=== PATIENT | male | born 1945 | race Caucasian/White ===

== ENCOUNTER 2021-12-01 15:13 | Emergency (ER) | payer MEDICARE ==
[2021-12-01 15:56] LABS: #Basophils 0.1 thou/uL (0.0-0.2); #Eosinphils 0.1 thou/uL (0.0-0.7); #Lymphocytes 1.3 thou/uL (1.20-3.40); #Neutrophils 11.7 thou/uL (1.40-6.50); %Basophils 0.8 % (0.0-1.0); %Eosinophils 0.6 % (0.0-10.0); %Neutrophils 82.6 % (42.0-75.0); Hemoglobin 14.4 g/dL (14.0-18.0); Mean Corpuscular HGB CONC 33.1 g/dL (32.0-36.0); Mean Corpuscular Hemoglobin 30.8 pg (27.0-31.0); Mean Platelet Volume 7.2 fL (7.4-10.4); Platelet Count 179 thou/uL (130-400); RBC Distribution Width 12.4 % (11.5-14.5); Red Blood Cell (RBC) Count 4.67 mill/uL (4.70-6.10); White Blood Cell (WBC) Count 14.1 thou/uL (4.8-10.8)
[2021-12-01 16:08] LABS: ALT (SGPT) 20 U/L (8-55); AST (SGOT) 18 U/L (5-34); Albumin 4.5 g/dL (3.4-4.8); Alkaline Phosphatase 50 U/L (40-110); Anion Gap 16 mmol/L (10-20); BUN (Urea Nitrogen) 24 mg/dL (8.4-25.7); Bilirubin, Total 0.5 mg/dL (0.2-1.2); Calc. Creatinine Clearance 0 mL/min (70-130); Calcium 9.5 mg/dL (7.8-10.44); Carbon Dioxide 22 mmol/L (23-31); Chloride 106 mmol/L (98-107); Glucose 252 mg/dL (83-110); Potassium 4.8 mmol/L (3.5-5.1); Protein, Total 7.5 g/dL (5.8-8.1); Sodium 139 mmol/L (136-145)
== END 2021-12-01 19:30 | disposition home or self-care (01) ==
LOC: ERS 15:13
DX: E11.22 Type 2 diabetes mellitus with diabetic chronic kidney disease (principal); N18.9 Chronic kidney disease, unspecified; Z87.891 Personal history of nicotine dependence; Z79.82 Long term (current) use of aspirin; Z79.899 Other long term (current) drug therapy
CPT/HCPCS: 36415; 70450; 71045; 80053; 83880; 84484; 85025; 93005

== ENCOUNTER 2023-03-01 08:19 | Outpatient (CLI) | payer MEDICARE | END 2023-03-01 08:20 | disposition home or self-care (01) | LOC: BICMRI 08:19 | PROVIDERS: ATTEND Specialist | DX: M79.645 Pain in left finger(s) (principal) ==

== ENCOUNTER 2024-02-24 09:07 | Outpatient (CLI) | payer MEDICARE ==
[2024-02-24 10:37] LABS: #Basophils 0.03 10x3/uL (0.0-0.2); %Basophils 0.5 % (0.0-1.0); %Eosinophils 3.8 % (0.0-10.0); %Lymphocytes 25.1 % (21.0-51.0); %Monocytes 12.4 % (0.0-10.0); %Neutrophils 57.9 % (42.0-75.0); Hematocrit 40.2 % (42.0-52.0); Hemoglobin 13.5 g/dL (14.0-18.0); Mean Corpuscular HGB CONC 33.6 g/dL (32.0-36.0); Mean Corpuscular Hemoglobin 30.3 pg (27.0-31.0); Mean Corpuscular Volume 90.1 fL (78.0-98.0); Mean Platelet Volume 9.3 fL (7.4-10.4); Platelet Count 155 10x3/uL (130-400); RBC Distribution Width 13.2 % (11.5-14.5); Red Blood Cell (RBC) Count 4.46 mill/uL (4.70-6.10)
[2024-02-24 10:47] LABS: Anion Gap 13 mmol/L (10-20); BUN (Urea Nitrogen) 28 mg/dL (8.4-25.7); Calc. Creatinine Clearance 0 mL/min (70-130); Calcium 9.4 mg/dL (7.8-10.44); Carbon Dioxide 21 mmol/L (23-31); Chloride 108 mmol/L (98-107); Estimated GFR 71; Glucose 101 mg/dL (83-110); Potassium 4.4 mmol/L (3.5-5.1); Sodium 138 mmol/L (136-145)
== END 2024-02-24 09:08 | disposition home or self-care (01) ==
LOC: LABBT 09:07
PROVIDERS: ATTEND Orthopaedic Surgery Hand Surgery
DX: Z01.818 Encounter for other preprocedural examination (principal); M72.0 Palmar fascial fibromatosis [Dupuytren]; M65.322 Trigger finger, left index finger
CPT/HCPCS: 80048; 85025; 93005; 93010

== ENCOUNTER 2024-02-28 06:10 | Day surgery (SDC) | payer MEDICARE ==
[2024-02-24 09:39] VITALS: BMI 27.1
[2024-02-28] MEDS ORDERED: Bacitracin Zinc Ointment 30 gm TUBE ONE (06:40)
[2024-02-28] MEDS ORDERED: Bupivacaine PF 0.5% 30 ML VIAL ONE (06:40)
[2024-02-28] MEDS ORDERED: Vancomycin (BATCH) 1.5 GM/300 ML BAG ONE (06:42)
[2024-02-28] MEDS ORDERED: fentaNYL PF 100 MCG/2 ML SYRINGE ONE (06:52)
[2024-02-28] MEDS ORDERED: Dexamethasone 4 mg/ml Vial ONE (06:52)
[2024-02-28] MEDS ORDERED: Ondansetron PF 4 MG/2 ML Vial ONE (06:52)
[2024-02-28] MEDS ORDERED: Lidocaine 1% PF 5 ML VIAL ONE (06:52)
[2024-02-28] MEDS ORDERED: PROPOFOL 40 ML ONE (06:53)
[2024-02-28] MEDS ORDERED: Vasopressin 20 UNITS/ML VIAL ONE (07:04)
[2024-02-28] MEDS ORDERED: Phenylephrine 40 MG/NS 250 ML 250 ML ONE (07:23)
[2024-02-28] MEDS ORDERED: ePHEDrine Sulfate 50 MG/10 ML VIAL ONE (07:24)
[2024-02-28] MEDS ORDERED: Glycopyrrolate 0.2 MG/ML 5 ML SYRINGE ONE (07:27)
== END 2024-02-28 10:27 | disposition home or self-care (01) ==
LOC: SDC 06:10
PROVIDERS: ATTEND Orthopaedic Surgery Hand Surgery
PROC: 0LN80ZZ Release Left Hand Tendon, Open Approach (ICD-10-PCS; principal; 2024-02-28)
PROC: 0JNK0ZZ Release Left Hand Subcutaneous Tissue and Fascia, Open Approach (ICD-10-PCS; 2024-02-28)
DX: M72.0 Palmar fascial fibromatosis [Dupuytren] (principal); M65.322 Trigger finger, left index finger
CPT/HCPCS: 26055; 26123; 64702 ×2; 82962; A6223; J0665; J1100; J2405; J2704; J3370; 36416; 88304